=== PATIENT | male | born 1995 | race Caucasian/White ===

== ENCOUNTER 2024-04-17 07:12 | Inpatient (IN) | payer MEDICARE, MEDICAID ==
[2024-04-17] VITALS (60 sets, daily range): BP systolic 86–150; BP diastolic 53–96; PULSE 107–136; RESP 18–45; TEMP 99.1–100.7
[~2024-04-17] VITALS: Ht 172.7 cm; Wt 114.8 kg
[~2024-04-17 07:12] MED LIST: ETOMIDATE 2MG/ML 10ML VIAL IV ONE; LEVE1000 MT; METO25TA6 MT
[2024-04-17] MEDS: ETOMIDATE 2MG/ML 10ML VIAL IV ONE (07:30)
[2024-04-17] MEDS: SUCCINYLCHOLINE CHLORIDE 200MG/10ML IV ONE (07:30)
[2024-04-17] MEDS: PROPOFOL 10MG/ML 100ML 100 ML IV ONE ×2 (07:45→09:50)
[2024-04-17 07:53] LABS: INR 0.9; PROTHROMBIN TIME 10.5 sec (9.6-11.0)
[2024-04-17 07:55] LABS: BASOPHILS % 0.4 % (0.0-2.0); DIFFERENTIAL COMMENT 0; EOSINOPHILS % 0.4 % (0.0-5.0); HEMATOCRIT. 47.9 % (42.0-52.0); LYMPHOCYTES % 8.7 % (20.0-50.0); MEAN CORPUSCULAR HEMOGLOBIN 29.5 pg (28.0-32.0); MEAN CORPUSCULAR HGB CONC 33.3 g/dL (31.0-37.0); MEAN CORPUSCULAR VOLUME 88.4 fL (80.0-94.0); MEAN PLATELET VOLUME 7.7 fl (7.4-10.4); MONOCYTES % 9.8 % (2.0-8.0); NEUTROPHILS % 80.7 % (40.0-76.0); PLATELET 378 x1000/uL (130-400); RED BLOOD CELL COUNT 5.42 mill/uL (4.7-6.1); RED CELL DISTRIBUTION WIDTH 14.4 % (11.6-14.6)
[2024-04-17 08:04] LABS: POTASSIUM 3.3 mEq/L (3.5-5.1)
[2024-04-17 08:06] LABS: CALCIUM 9.5 mg/dL (8.7-10.4)
[2024-04-17] MEDS: SODIUM CHLORIDE 0.9% 1000ML BAG (SEPSIS BOLUS) IV ONE (08:10)
[2024-04-17 08:13] LABS: CREATININE 1.6 mg/dL (0.6-1.3)
[2024-04-17] MEDS: PIPERACILLIN/TAZO 3.375G/50ML 50 ML IV ONE (08:35)
[2024-04-17 08:38] LABS: LACTIC ACID 4.8 mmol/L (0.4-2.0)
[2024-04-17 09:30] LABS: CLARITY URINE CLOUDY (CLEAR); COLOR URINE ORANGE (YELLOW); GLUCOSE URINE NEGATIVE (NEGATIVE); KETONES URINE NEGATIVE (NEGATIVE); LEUKOCYTE ESTERASE URINE TRACE (NEGATIVE); NITRITE URINE NEGATIVE (NEGATIVE); OCCULT BLOOD URINE 3+ (NEGATIVE); PH URINE 5.5 (4.5-8.0); PROTEIN URINE 3+ (NEGATIVE); SPECIFIC GRAVITY URINE 1.016 (1.005-1.030); UROBILINOGEN URINE 0.2 E.U./dL (0.2-1.0)
[2024-04-17 09:42] LABS: BG BASE EXCESS -5.6 mmol/L (-2.0-2.0); BG CARBOXYHEMOGLOBIN 0.3 % (0.5-1.5); BG DEOXYHEMOGLOBIN 1.4 % (0.0-5.0); BG FRACTION INSPIRED OXYGEN 100; BG HCO3 ACT 21.3 mmol/L (22.0-26.0); BG METHEMOGLOBIN 0.1 % (0.0-1.5); BG OXYGEN SATURATION 98.6 % (92.0-98.5); BG OXYHEMOGLOBIN 98.2 % (94.0-97.0); BG PCO2 46.8 mmHg (35.0-45.0); BG PH 7.277 (7.350-7.450); BG PO2 140.8 mmHg (75.0-100.0); BG SAMPLE SITE RIGHT RADIAL; BG TOTAL HEMOGLOBIN 17.1 g/dL (12.0-18.0); BG VENT MODE VENT - AC
[2024-04-17 09:49] LABS: BACTERIA URINE NONE SEEN; COARSE GRANULAR CASTS URINE 0-5 /lpf; HYALINE CASTS URINE 0-5 /lpf; SQUAMOUS EPITHELIAL CELL URINE RARE /lpf (RARE/1+); WBC URINE 0-2 /hpf (0-2); YEAST URINE NONE SEEN
[2024-04-17] MEDS: LEVETIRACETAM 1000MG PREMIX 100 ML IV ONE (09:49)
[2024-04-17] MEDS: VANCOMYCIN 1G PREMIX 200 ML IV ONE (09:49)
[2024-04-17] MEDS: LIDOCAINE HCL 1% 10 MG/ML 10ML VIAL ONE (09:57)
[2024-04-17] MEDS ORDERED: MIDAZOLAM 100MG/100ML PMX 100 ML IV PRN (10:15)
[2024-04-17] MEDS: MIDAZOLAM HCL 100 MG in DEXT 5% WATER 80 ML IV ONE (10:18)
[2024-04-17 11:42] LABS: CREATINE KINASE 10088 IU/L (46-171); ETHANOL BLOOD < 10 mg/dL (<10)
[2024-04-17] MEDS: FENTANYL 2500MCG/250ML PMX 250 ML IV PRN (12:15)
[2024-04-17] MEDS ORDERED: BICT1TAB PO (12:34)
[2024-04-17] MEDS: PROPOFOL 10MG/ML 100ML 100 ML IV PRN (13:41)
[2024-04-17 14:27] LABS: BG BASE EXCESS -3.9 mmol/L (-2.0-2.0); BG CARBOXYHEMOGLOBIN 0.3 % (0.5-1.5); BG DEOXYHEMOGLOBIN 1.8 % (0.0-5.0); BG FRACTION INSPIRED OXYGEN 60; BG HCO3 ACT 20.4 mmol/L (22.0-26.0); BG OXYGEN SATURATION 98.2 % (92.0-98.5); BG OXYHEMOGLOBIN 97.9 % (94.0-97.0); BG PCO2 35.3 mmHg (35.0-45.0); BG PH 7.379 (7.350-7.450); BG PO2 117.9 mmHg (75.0-100.0); BG SAMPLE SITE RIGHT RADIAL; BG TOTAL HEMOGLOBIN 15.8 g/dL (12.0-18.0); BG VENT MODE VENT - AC
[2024-04-17] MEDS ORDERED: ONDANSETRON HCL 4MG/2ML INJ IV PRN (15:15)
[2024-04-17] MEDS ORDERED: VANCOMYCIN 1G PREMIX 200 ML IV SCH (15:15)
[2024-04-17] MEDS ORDERED: IPRATROPIUM/ALBUTEROL 0.5-3(2.5)MG/3ML NEB HHN PRN (15:15)
[2024-04-17] MEDS ORDERED: CLONIDINE 0.1MG TABLET PO PRN (15:15)
[2024-04-17] MEDS ORDERED: MORPHINE SULFATE 2 MG/ML INJ (NOT FOR IM USE) IV PRN (15:15)
[2024-04-17] MEDS ORDERED: PIPERACILLIN/TAZOBACTAM 3.375 G in DEXTROSE 5% WATER 50 ML IV SCH (15:15)
[2024-04-17] MEDS: DEXT 5%/0.45% NACL 1000ML 1,000 ML IV SCH (15:44)
[2024-04-17] MEDS: PIPERACILLIN/TAZO 3.375G/50ML IV SCH (15:58)
[2024-04-17 16:02] LABS: *AMPHETAMINES SCREEN URINE NEGATIVE (NEGATIVE); *BARBITURATES SCREEN URINE NEGATIVE (NEGATIVE); *BENZODIAZEPINES SCREEN URINE PRESUMPTIVE POSITIVE (NEGATIVE); *COCAINE SCREEN URINE NEGATIVE (NEGATIVE); CANNABINOID URINE SCREEN PRESUMPTIVE POSITIVE (NEGATIVE); ECSTASY MDMA SCREEN URINE NEGATIVE (NEGATIVE); METHADONE URINE SCREEN NEGATIVE (NEGATIVE); OPIATES URINE SCREEN NEGATIVE (NEGATIVE); PHENCYCLIDINE URINE SCREEN NEGATIVE (NEGATIVE)
[2024-04-17] MEDS: VANCOMYCIN 2,000 MG in DEXT 5% WATER 500 ML IV NR (16:46)
[2024-04-17] MEDS ORDERED: DEXTROSE 50% WATER 50ML SYRINGE IV PRN (17:15)
[2024-04-17] MEDS: INSULIN LISPRO 100 UNITS/ML SUBCUT SCH (18:00)
[2024-04-17] MEDS: BLOOD SUGAR DIAGNOSTIC STRIP TEST SCH (18:12)
[2024-04-17] MEDS: ENOXAPARIN 30MG/0.3ML SYR SUBCUT SCH (18:13)
[2024-04-17] MEDS: ACETAMINOPHEN 650MG/20.3ML UDC GT PRN (19:31)
[2024-04-17] MEDS: MIDAZOLAM 100MG/100ML PMX 100 ML IV PRN (19:37)
[2024-04-17] MEDS ORDERED: LEVETIRACETAM 500MG in NACL 100ML PREMIX IV SCH (21:00)
[2024-04-17] MEDS ORDERED: LEVETIRACETAM 500MG PREMIX 100 ML IV SCH (21:00)
[2024-04-17] MEDS: LEVETIRACETAM 1000MG PREMIX 100 ML IV SCH (21:11)
[2024-04-17 22:46] LABS: CREATINE KINASE 11085 IU/L (46-171)
[2024-04-17 22:49] LABS: TROPONIN I HIGH SENSITIVITY 80 ng/L (3.0-53)
[2024-04-18] VITALS (85 sets, daily range): BP systolic 80–142; BP diastolic 46–98; PULSE 78–112; RESP 15–43; TEMP 97.7–99.8; O2SAT 95
[2024-04-18] MEDS: IPRATROPIUM/ALBUTEROL 0.5-3(2.5)MG/3ML NEB HHN SCH (02:09)
[2024-04-18 05:47] LABS: HEMATOCRIT. 40.9 % (42.0-52.0); HEMOGLOBIN. 13.7 g/dL (14.0-18.0); MEAN CORPUSCULAR HEMOGLOBIN 29.8 pg (28.0-32.0); MEAN CORPUSCULAR HGB CONC 33.6 g/dL (31.0-37.0); MEAN CORPUSCULAR VOLUME 88.5 fL (80.0-94.0); MEAN PLATELET VOLUME 7.6 fl (7.4-10.4); PLATELET 238 x1000/uL (130-400); RED BLOOD CELL COUNT 4.62 mill/uL (4.7-6.1); WHITE BLOOD COUNT 17.4 x1000/uL (4.5-11.0)
[2024-04-18 05:48] LABS: CARBON DIOXIDE 23 mEq/L (21-32); CHLORIDE 108 mEq/L (98-107); POTASSIUM 3.7 mEq/L (3.5-5.1); SODIUM 141 mEq/L (136-145)
[2024-04-18 05:49] LABS: CALCIUM 8.5 mg/dL (8.7-10.4)
[2024-04-18 05:51] LABS: TROPONIN I HIGH SENSITIVITY 37 ng/L (3.0-53)
[2024-04-18 05:54] LABS: CREATININE 1.2 mg/dL (0.6-1.3); GLUCOSE 113 mg/dL (70-105); TRIGLYCERIDE 272 mg/dL (0-150); UREA NITROGEN BLOOD 10 mg/dL (9-23)
[2024-04-18 05:55] LABS: LDL CHOLESTEROL 20 mg/dL (5-100)
[2024-04-18 05:56] LABS: CHOLESTEROL 88 mg/dL (<200); HDL CHOLESTEROL 35 mg/dL (>55); T4 FREE 1.21 ng/dL (0.89-1.76); THYROID STIMULATING HORMONE 0.99 uIU/mL (0.55-4.78)
[2024-04-18 06:01] LABS: DIFFERENTIAL COMMENT 1
[2024-04-18 06:22] LABS: CREATINE KINASE 10615 IU/L (46-171)
[2024-04-18 09:05] LABS: BG BASE EXCESS -1.2 mmol/L (-2.0-2.0); BG CARBOXYHEMOGLOBIN 0.4 % (0.5-1.5); BG DEOXYHEMOGLOBIN 3.7 % (0.0-5.0); BG FRACTION INSPIRED OXYGEN 50; BG HCO3 ACT 22.9 mmol/L (22.0-26.0); BG METHEMOGLOBIN 0.3 % (0.0-1.5); BG OXYGEN SATURATION 96.3 % (92.0-98.5); BG OXYHEMOGLOBIN 95.6 % (94.0-97.0); BG PCO2 36.6 mmHg (35.0-45.0); BG PH 7.414 (7.350-7.450); BG PO2 83.9 mmHg (75.0-100.0); BG SAMPLE SITE RIGHT RADIAL; BG TOTAL HEMOGLOBIN 13.7 g/dL (12.0-18.0); BG VENT MODE VENT - AC
[2024-04-18] MEDS: VANCOMYCIN 1GM/200ML PMX (BAXTER) IV SCH (11:02)
[2024-04-18] MEDS ORDERED: VANCOMYCIN 1.25GM PMX (XELLIA) 250 ML IV SCH (12:00)
[2024-04-18] MEDS: FUROSEMIDE 40MG/4ML VIAL IVP NR (13:03)
[2024-04-18] MEDS: DEXMEDETOMIDINE 400 MCG/100 ML 100 ML IV PRN (14:00)
[2024-04-18 15:22] LABS: ANISOCYTOSIS 1+; PLATELET ESTIMATE NORMAL
[2024-04-18 16:37] LABS: BG BASE EXCESS -0.3 mmol/L (-2.0-2.0); BG CARBOXYHEMOGLOBIN 0.2 % (0.5-1.5); BG DEOXYHEMOGLOBIN 5.5 % (0.0-5.0); BG FRACTION INSPIRED OXYGEN 50; BG HCO3 ACT 23.8 mmol/L (22.0-26.0); BG METHEMOGLOBIN 0.3 % (0.0-1.5); BG OXYGEN SATURATION 94.5 % (92.0-98.5); BG PCO2 37.4 mmHg (35.0-45.0); BG PH 7.421 (7.350-7.450); BG PO2 70.5 mmHg (75.0-100.0); BG SAMPLE SITE LEFT RADIAL; BG TOTAL HEMOGLOBIN 14.4 g/dL (12.0-18.0); BG VENT MODE VENT - CPAP
[2024-04-19] VITALS (41 sets, daily range): BP systolic 90–150; BP diastolic 35–104; PULSE 77–112; RESP 14–46; TEMP 97.2–99; O2SAT 95–99
[2024-04-19 11:58] LABS: CHLORIDE 107 mEq/L (98-107); POTASSIUM 3.5 mEq/L (3.5-5.1); SODIUM 139 mEq/L (136-145)
[2024-04-19 11:59] LABS: CALCIUM 8.7 mg/dL (8.7-10.4); CARBON DIOXIDE 25 mEq/L (21-32)
[2024-04-19 12:03] LABS: BASOPHILS % 0.6 % (0.0-2.0); EOSINOPHILS % 2.4 % (0.0-5.0); HEMATOCRIT. 37.6 % (42.0-52.0); HEMOGLOBIN. 12.1 g/dL (14.0-18.0); LYMPHOCYTES % 9.1 % (20.0-50.0); MEAN CORPUSCULAR HEMOGLOBIN 28.5 pg (28.0-32.0); MEAN CORPUSCULAR HGB CONC 32.1 g/dL (31.0-37.0); MEAN PLATELET VOLUME 8.3 fl (7.4-10.4); NEUTROPHILS % 81.9 % (40.0-76.0); PLATELET 213 x1000/uL (130-400); RED BLOOD CELL COUNT 4.23 mill/uL (4.7-6.1); RED CELL DISTRIBUTION WIDTH 14.9 % (11.6-14.6); WHITE BLOOD COUNT 11.6 x1000/uL (4.5-11.0)
[2024-04-19 12:04] LABS: GLUCOSE 94 mg/dL (70-105); UREA NITROGEN BLOOD 9 mg/dL (9-23)
[2024-04-19 12:06] LABS: ALANINE AMINOTRANSFERASE 254 IU/L (10-49); ALBUMIN 3.8 g/dL (3.2-4.8); ASPARTATE AMINOTRANSFERASE 231 IU/L (<34); BILIRUBIN DIRECT 0.2 mg/dL (<=3.0); BILIRUBIN TOTAL 0.6 mg/dL (0.1-1.0); PROTEIN TOTAL 6.2 g/dL (6.0-8.3)
[2024-04-19] MEDS: VANCOMYCIN 1GM/200ML PMX (BAXTER) IV SCH (18:22)
[2024-04-19] MEDS ORDERED: NALOXONE HCL 0.4MG/ML VIAL IV PRN (18:45)
[2024-04-19] MEDS ORDERED: ACETYLCYSTEINE 200MG/ML 20% VIAL 4ML PO SCH (21:00)
[2024-04-19] MEDS: ACETYLCYSTEINE 200MG/ML 20% VIAL 4ML INH SCH (22:00)
[2024-04-19] MEDS: TEMAZEPAM 15MG CAPSULE PO PRN (22:05)
[2024-04-20] VITALS (10 sets, daily range): BP systolic 125–133; BP diastolic 75–90; PULSE 85–123; RESP 16–20; TEMP 97.3–99.4; O2SAT 8–98
[2024-04-20 06:50] LABS: CALCIUM 9.4 mg/dL (8.7-10.4); CARBON DIOXIDE 26 mEq/L (21-32); CHLORIDE 103 mEq/L (98-107); SODIUM 138 mEq/L (136-145)
[2024-04-20 06:55] LABS: CREATININE 0.9 mg/dL (0.6-1.3)
[2024-04-20 06:56] LABS: BASOPHILS % 0.4 % (0.0-2.0); EOSINOPHILS % 2.7 % (0.0-5.0); GLUCOSE 92 mg/dL (70-105); HEMATOCRIT. 40.5 % (42.0-52.0); HEMOGLOBIN. 13.6 g/dL (14.0-18.0); LYMPHOCYTES % 12.4 % (20.0-50.0); MEAN CORPUSCULAR HEMOGLOBIN 29.5 pg (28.0-32.0); MEAN CORPUSCULAR HGB CONC 33.6 g/dL (31.0-37.0); MEAN CORPUSCULAR VOLUME 87.7 fL (80.0-94.0); MEAN PLATELET VOLUME 7.5 fl (7.4-10.4); NEUTROPHILS % 75.5 % (40.0-76.0); PLATELET 260 x1000/uL (130-400); RED BLOOD CELL COUNT 4.62 mill/uL (4.7-6.1); RED CELL DISTRIBUTION WIDTH 14.9 % (11.6-14.6); UREA NITROGEN BLOOD 8 mg/dL (9-23); WHITE BLOOD COUNT 9.5 x1000/uL (4.5-11.0)
[2024-04-20 07:08] LABS: CREATINE KINASE 5067 IU/L (46-171)
[2024-04-20] MEDS: POTASSIUM CHLORIDE 20MEQ TABLET SR PO NR (09:32)
[2024-04-20 09:51] LABS: BG BASE EXCESS 0.2 mmol/L (-2.0-2.0); BG CARBOXYHEMOGLOBIN 1.4 % (0.5-1.5); BG DEOXYHEMOGLOBIN 6.5 % (0.0-5.0); BG FRACTION INSPIRED OXYGEN 40; BG HCO3 ACT 23.1 mmol/L (22.0-26.0); BG METHEMOGLOBIN 0.3 % (0.0-1.5); BG OXYGEN SATURATION 93.4 % (92.0-98.5); BG OXYHEMOGLOBIN 91.8 % (94.0-97.0); BG PCO2 32.5 mmHg (35.0-45.0); BG PH 7.469 (7.350-7.450); BG PO2 62.8 mmHg (75.0-100.0); BG SAMPLE SITE RIGHT BRACHIAL; BG TOTAL HEMOGLOBIN 14.1 g/dL (12.0-18.0); BG VENT MODE HIGH FLOW
[2024-04-20 17:07] LABS: *HIV-1 RNA BY PCR <20 copies/mL (.)
[2024-04-21] VITALS (8 sets, daily range): BP systolic 122–139; BP diastolic 74–91; PULSE 78–97; RESP 18–20; TEMP 97.1–98.2; O2SAT 95–97
[2024-04-21 09:09] LABS: % CD 3 POS. LYMPHOCYTES 60.8 % (57.5-86.2); % CD 4 POS. LYMPHOCYTES 32.2 % (30.8-58.5); % CD 8 POS. LYMPH 28.4 % (12.0-35.5); ABSOLUTE BASOPHILS 0.1 x10E3/uL (0.0-0.2); ABSOLUTE CD 3 730 /uL (622-2402); ABSOLUTE CD 4 HELPER 386 /uL (359-1519); ABSOLUTE CD 8 SUPPRESSOR 341 /uL (109-897); ABSOLUTE EOSINOPHILS 0.3 x10E3/uL (0.0-0.4); ABSOLUTE LYMPHOCYTES 1.2 x10E3/uL (0.7-3.1); ABSOLUTE MONOCYTES 0.7 x10E3/uL (0.1-0.9); ABSOLUTE NEUTROPHILS 6.9 x10E3/uL (1.4-7.0); BASOPHILS 1 % (Not Estab.); CD4/CD8 RATIO 1.13 (0.92-3.72); EOSINOPHILS 3 % (Not Estab.); HEMATOCRIT 43.7 % (37.5-51.0); HEMOGLOBIN 14.2 g/dL (13.0-17.7); IMMATURE GRANULOCYTES 1 % (Not Estab.); IMMATURE GRANULOCYTES ABSOLUTE 0.1 x10E3/uL (0.0-0.1); LYMPHOCYTES 13 % (Not Estab.); MEAN CORPUSCULAR HEMOGLOBIN 29.5 pg (26.6-33.0); MEAN CORPUSCULAR HGB CONC. 32.5 g/dL (31.5-35.7); MEAN CORPUSCULAR VOLUME 91 fL (79-97); MONOCYTES 8 % (Not Estab.); NEUTROPHILS 74 % (Not Estab.); PLATELETS 250 x10E3/uL (150-450); RBC 4.81 x10E6/uL (4.14-5.80); RED CELL DISTRIBUTION WIDTH 14.5 % (11.6-15.4); WBC 9.2 x10E3/uL (3.4-10.8)
[2024-04-21 14:21] LABS: BG BASE EXCESS -0.3 mmol/L (-2.0-2.0); BG CARBOXYHEMOGLOBIN 0.9 % (0.5-1.5); BG DEOXYHEMOGLOBIN 7.9 % (0.0-5.0); BG FRACTION INSPIRED OXYGEN 21; BG METHEMOGLOBIN 0.3 % (0.0-1.5); BG OXYHEMOGLOBIN 90.9 % (94.0-97.0); BG PCO2 34.1 mmHg (35.0-45.0); BG PH 7.447 (7.350-7.450); BG PO2 60.3 mmHg (75.0-100.0); BG SAMPLE SITE LEFT RADIAL; BG TOTAL HEMOGLOBIN 14.9 g/dL (12.0-18.0); BG VENT MODE ROOM AIR
[2024-04-21] MEDS ORDERED: VANCOMYCIN 1.25GM PMX (XELLIA) 250 ML IV SCH (17:00)
== END 2024-04-21 17:44 | disposition home or self-care (01) | DRG 208 ==
LOC: ER 07:12 → CVICU 09:09 → EDBEDREQ 09:11 → EDBEDREQTM 09:11 → 7WST 04-19 19:05
PROVIDERS: ADMIT Internal Medicine; ATTEND Internal Medicine
PROC: 5A1945Z Respiratory Ventilation, 24-96 Consecutive Hours (ICD-10-PCS; principal; 2024-04-17)
PROC: 0BH17EZ Insertion of Endotracheal Airway into Trachea, Via Natural or Artificial Opening (ICD-10-PCS; 2024-04-17)
PROC: 02HV33Z Insertion of Infusion Device into Superior Vena Cava, Percutaneous Approach (ICD-10-PCS; 2024-04-17)
PROC: B548ZZA Ultrasonography of Superior Vena Cava, Guidance (ICD-10-PCS; 2024-04-17)
PROC: 5A0945A Assistance with Respiratory Ventilation, 24-96 Consecutive Hours, High Flow/Velocity Cannula (ICD-10-PCS; 2024-04-18)
PROC: 4A00X4Z Measurement of Central Nervous Electrical Activity, External Approach (ICD-10-PCS; 2024-04-18)
DX: J80 Acute respiratory distress syndrome (principal); J69.0 Pneumonitis due to inhalation of food and vomit; J93.9 Pneumothorax, unspecified; M62.82 Rhabdomyolysis; N17.9 Acute kidney failure, unspecified; G40.901 Epilepsy, unspecified, not intractable, with status epilepticus; F15.90 Other stimulant use, unspecified, uncomplicated; F12.90 Cannabis use, unspecified, uncomplicated; G93.89 Other specified disorders of brain; Z51.5 Encounter for palliative care; Z86.73 Personal history of transient ischemic attack (TIA), and cerebral infarction without residual deficits
CPT/HCPCS: 31500; 36415; 36573; 36600; 71045; 80048; 80061; 80076; 80202; 80305; 80320; 81003; 82375; 82550; 82805; 82962; 83605; 84145; 84425; 84439; 84443; 84484; 85025; 86359; 86360; 86850; 86900; 87070; 87077; 87186; 87536; 92610; 93005; 94003; 94640; 95816; 99291; C1725; J0330; J1650; J1940; J1953; J2250; J2543; J2704; J3010; J3370; J3490; J7030; J7060; J7608; Q9957; G0480

== ENCOUNTER 2024-08-25 04:15 | Inpatient (IN) | payer OTHER, MEDICAID, MEDICARE ==
[~2024-08-25] VITALS: Ht 177.8 cm; Wt 124.8 kg
[2024-08-25] VITALS (9 sets, daily range): BP systolic 115–156; BP diastolic 76–105; PULSE 89–112; RESP 17–32; TEMP 36.6696–37.11408; O2SAT 93–98
[~2024-08-25 04:15] MED LIST changes: +BICT1TAB PO; -ETOMIDATE 2MG/ML 10ML VIAL IV ONE; +KEPP500 MT
[2024-08-25] MEDS: LEVETIRACETAM 1000MG PREMIX 100 ML IV ONE (04:47)
[2024-08-25 05:03] LABS: BASOPHILS % 0.6 % (0.0-2.0); EOSINOPHILS % 2.5 % (0.0-5.0); HEMATOCRIT. 48.1 % (42.0-52.0); HEMOGLOBIN. 16.7 g/dL (14.0-18.0); LYMPHOCYTES % 34.3 % (20.0-50.0); MEAN CORPUSCULAR HEMOGLOBIN 30.2 pg (28.0-32.0); MEAN CORPUSCULAR HGB CONC 34.7 g/dL (31.0-37.0); MEAN CORPUSCULAR VOLUME 86.8 fL (80.0-94.0); MEAN PLATELET VOLUME 7.1 fl (7.4-10.4); MONOCYTES % 7.7 % (2.0-8.0); NEUTROPHILS % 54.9 % (40.0-76.0); PLATELET 276 x1000/uL (130-400); RED BLOOD CELL COUNT 5.54 mill/uL (4.7-6.1); RED CELL DISTRIBUTION WIDTH 13.8 % (11.6-14.6); WHITE BLOOD COUNT 10.2 x1000/uL (4.5-11.0)
[2024-08-25 05:08] LABS: CHLORIDE 105 mEq/L (98-107); POTASSIUM 4.2 mEq/L (3.5-5.1); SODIUM 140 mEq/L (136-145)
[2024-08-25 05:09] LABS: CALCIUM 9.5 mg/dL (8.7-10.4); CARBON DIOXIDE 27 mEq/L (21-32)
[2024-08-25 05:14] LABS: CREATININE 0.8 mg/dL (0.6-1.3); GLUCOSE 114 mg/dL (70-105); UREA NITROGEN BLOOD 11 mg/dL (9-23)
[2024-08-25 05:16] LABS: LACTIC ACID 2.1 mmol/L (0.4-2.0)
[2024-08-25] MEDS: ONDANSETRON HCL 4MG/2ML INJ IV PRN (07:09)
[2024-08-25] MEDS: LORAZEPAM 2MG/ML INJ IV ONE (07:09)
[2024-08-25] MEDS ORDERED: ONDANSETRON HCL 4MG/2ML INJ IV PRN (12:15)
[2024-08-25] MEDS ORDERED: ACETAMINOPHEN 325MG TABLET PO PRN (12:15)
[2024-08-25] MEDS ORDERED: IPRATROPIUM/ALBUTEROL 0.5-3(2.5)MG/3ML NEB HHN PRN (12:15)
[2024-08-25] MEDS: HYDROCODONE/ACETAMINOPHEN 5/325MG TABLET PO PRN (12:27)
[2024-08-25] MEDS: ENOXAPARIN 30MG/0.3ML SYR SUBCUT SCH (14:54)
[2024-08-25 17:22] LABS: *AMPHETAMINES SCREEN URINE NEGATIVE (NEGATIVE); *BARBITURATES SCREEN URINE NEGATIVE (NEGATIVE); *BENZODIAZEPINES SCREEN URINE PRESUMPTIVE POSITIVE (NEGATIVE); *COCAINE SCREEN URINE NEGATIVE (NEGATIVE); CANNABINOID URINE SCREEN PRESUMPTIVE POSITIVE (NEGATIVE); ECSTASY MDMA SCREEN URINE NEGATIVE (NEGATIVE); METHADONE URINE SCREEN NEGATIVE (NEGATIVE); OPIATES URINE SCREEN PRESUMPTIVE POSITIVE (NEGATIVE); PHENCYCLIDINE URINE SCREEN NEGATIVE (NEGATIVE)
[2024-08-25] MEDS: LEVETIRACETAM 500MG TABLET PO SCH (21:03)
[2024-08-25] MEDS: METOPROLOL TARTRATE 25MG TABLET PO SCH (21:03)
[2024-08-26] VITALS (12 sets, daily range): BP systolic 110–145; BP diastolic 38–95; PULSE 76–94; RESP 12–29; TEMP 36.3918–37.11408; O2SAT 90–98
[2024-08-26 07:05] LABS: BASOPHILS % 0.2 % (0.0-2.0); EOSINOPHILS % 0.2 % (0.0-5.0); HEMATOCRIT. 45.9 % (42.0-52.0); HEMOGLOBIN. 15.7 g/dL (14.0-18.0); LYMPHOCYTES % 18.1 % (20.0-50.0); MEAN CORPUSCULAR HEMOGLOBIN 29.3 pg (28.0-32.0); MEAN CORPUSCULAR HGB CONC 34.3 g/dL (31.0-37.0); MEAN CORPUSCULAR VOLUME 85.6 fL (80.0-94.0); MEAN PLATELET VOLUME 7.3 fl (7.4-10.4); MONOCYTES % 7.9 % (2.0-8.0); NEUTROPHILS % 73.6 % (40.0-76.0); PLATELET 301 x1000/uL (130-400); RED BLOOD CELL COUNT 5.37 mill/uL (4.7-6.1); RED CELL DISTRIBUTION WIDTH 13.5 % (11.6-14.6); WHITE BLOOD COUNT 12.3 x1000/uL (4.5-11.0)
[2024-08-26 07:12] LABS: CARBON DIOXIDE 25 mEq/L (21-32); CHLORIDE 102 mEq/L (98-107); POTASSIUM 3.6 mEq/L (3.5-5.1); SODIUM 139 mEq/L (136-145)
[2024-08-26 07:13] LABS: CALCIUM 9.7 mg/dL (8.7-10.4)
[2024-08-26 07:17] LABS: CREATININE 0.8 mg/dL (0.6-1.3)
[2024-08-26 07:18] LABS: GLUCOSE 90 mg/dL (70-105); UREA NITROGEN BLOOD 11 mg/dL (9-23)
[2024-08-26] MEDS: ACETAMINOPHEN 325MG TABLET PO PRN (13:04)
[2024-08-26] MEDS ORDERED: ATOR40TA70 MT (15:46)
[2024-08-26] MEDS ORDERED: ASPI-1497 MT (15:46)
[2024-08-26] MEDS ORDERED: LEVE10006 PO (18:25)
== END 2024-08-26 21:30 | disposition home or self-care (01) | DRG 101 ==
LOC: ER 04:15 → 5EST 05:01
PROVIDERS: ADMIT Internal Medicine; ATTEND Internal Medicine
DX: G40.909 Epilepsy, unspecified, not intractable, without status epilepticus (principal); Z91.148 Patient's other noncompliance with medication regimen for other reason; Z86.73 Personal history of transient ischemic attack (TIA), and cerebral infarction without residual deficits; Z79.899 Other long term (current) drug therapy; Z21 Asymptomatic human immunodeficiency virus [HIV] infection status
CPT/HCPCS: 36415; 70551; 71045; 80048; 80305; 80320; 82542; 82962; 83605; 85025; 93005; 99291; J1650; J1953; J2060; J2405; G0480

== ENCOUNTER 2024-10-24 09:03 | Inpatient (IN) | payer MEDICARE, MEDICAID ==
[~2024-10-24] VITALS: Ht 170.2 cm; Wt 120.7 kg
[~2024-10-24 09:03] MED LIST changes: +ASPI-1497 MT; +ATOR40TA70 MT; -KEPP500 MT; -LEVE1000 MT; +LEVE10006 PO
[2024-10-24] MEDS ORDERED: LORAZEPAM 2MG/ML INJ ONE (09:34)
[2024-10-24] MEDS: LORAZEPAM 2MG/ML INJ IV ONE ×2 (09:44)
[2024-10-24] MEDS: LEVETIRACETAM 500MG PREMIX 100 ML IV ONE (10:14)
[2024-10-24] MEDS: MIDAZOLAM HCL 2 MG/2 ML VIAL IV ONE (10:29)
[2024-10-24] MEDS ORDERED: ONDANSETRON HCL 4MG/2ML INJ ONE (10:32)
[2024-10-24] MEDS: ONDANSETRON HCL 4MG/2ML INJ IV ONE (10:39)
[2024-10-24 10:40] LABS: CHLORIDE 105 mEq/L (98-107); POTASSIUM 4.1 mEq/L (3.5-5.1); SODIUM 140 mEq/L (136-145)
[2024-10-24 10:41] LABS: CALCIUM 9.8 mg/dL (8.7-10.4); CARBON DIOXIDE 27 mEq/L (21-32)
[2024-10-24 10:46] LABS: GLUCOSE 132 mg/dL (70-105); UREA NITROGEN BLOOD 10 mg/dL (9-23)
[2024-10-24 10:48] LABS: ALANINE AMINOTRANSFERASE 80 IU/L (10-49); ALBUMIN 5.1 g/dL (3.2-4.8); ASPARTATE AMINOTRANSFERASE 41 IU/L (<34); BILIRUBIN TOTAL 0.3 mg/dL (0.1-1.0)
[2024-10-24 10:49] LABS: BASOPHILS % 0.3 % (0.0-2.0); EOSINOPHILS % 0.3 % (0.0-5.0); HEMATOCRIT. 49.8 % (42.0-52.0); HEMOGLOBIN. 16.2 g/dL (14.0-18.0); LYMPHOCYTES % 11.3 % (20.0-50.0); MEAN CORPUSCULAR HEMOGLOBIN 29.3 pg (28.0-32.0); MEAN CORPUSCULAR HGB CONC 32.5 g/dL (31.0-37.0); MEAN CORPUSCULAR VOLUME 90.2 fL (80.0-94.0); MEAN PLATELET VOLUME 7.5 fl (7.4-10.4); MONOCYTES % 3.2 % (2.0-8.0); NEUTROPHILS % 84.9 % (40.0-76.0); PLATELET 285 x1000/uL (130-400); RED BLOOD CELL COUNT 5.52 mill/uL (4.7-6.1); RED CELL DISTRIBUTION WIDTH 13.7 % (11.6-14.6); WHITE BLOOD COUNT 11.5 x1000/uL (4.5-11.0)
[2024-10-24] MEDS ORDERED: HALOPERIDOL LACTATE 5MG/ML VIAL IM ONE (11:13)
[2024-10-24] MEDS: HALOPERIDOL LACTATE 5MG/ML VIAL IM ONE (11:26)
[2024-10-24] MEDS ORDERED: ATORVASTATIN CALCIUM 40MG TABLET PO SCH (16:30)
[2024-10-24] MEDS: ASPIRIN 81MG EC TABLET PO SCH (16:30)
[2024-10-24] MEDS: METOPROLOL TARTRATE 25MG TABLET PO SCH (16:30)
[2024-10-24 20:00] VITALS: BP 130/72; PULSE 95; RESP 18; RESP 20; TEMP 36.8; O2SAT 95
[2024-10-24] MEDS: ATORVASTATIN CALCIUM 40MG TABLET PO SCH (21:10)
[2024-10-25] VITALS: BP 103/59; PULSE 86; RESP 18; TEMP 37; O2SAT 100
[2024-10-25 04:00] VITALS: BP 129/90; PULSE 84; RESP 18; TEMP 36.7; O2SAT 100
[2024-10-25 08:00] VITALS: BP 148/86; PULSE 86; RESP 18; TEMP 36.6; O2SAT 95
[2024-10-25] MEDS: LEVETIRACETAM 500MG TABLET PO SCH (10:17)
[2024-10-25 12:00] VITALS: BP 100/61; PULSE 60; RESP 18; TEMP 36.6; O2SAT 95
[2024-10-25 16:00] VITALS: BP 116/76; PULSE 68; RESP 20; TEMP 37.1; O2SAT 97
[2024-10-25 20:00] VITALS: BP 119/40; PULSE 75; RESP 19; TEMP 36.4; O2SAT 98
[2024-10-26] VITALS: BP 116/73; PULSE 60; RESP 19; TEMP 36.8; O2SAT 98
[2024-10-26 04:00] VITALS: BP 115/74; PULSE 74; RESP 19; TEMP 36.6; O2SAT 97
[2024-10-26 08:13] VITALS: BP 116/67; PULSE 66; RESP 18; TEMP 36.7; O2SAT 99
[2024-10-26] MEDS: LACOSAMIDE 100MG TABLET PO SCH (10:07)
[2024-10-26 12:00] VITALS: BP 108/60; PULSE 87; RESP 19; TEMP 36.8; O2SAT 100
[2024-10-26 16:26] VITALS: BP 105/59; PULSE 76; RESP 18; TEMP 36.8; O2SAT 97
[2024-10-26 20:20] VITALS: BP 118/82; PULSE 81; RESP 18; TEMP 36.4; O2SAT 96
[2024-10-27 00:26] VITALS: BP 117/76; PULSE 68; RESP 18; TEMP 36.4; O2SAT 98
[2024-10-27 04:00] VITALS: BP 118/74; PULSE 65; RESP 18; TEMP 36.3; O2SAT 97
[2024-10-27 08:12] VITALS: BP 124/73; PULSE 74; RESP 20; TEMP 36.8; O2SAT 94
[2024-10-27 11:21] VITALS: BP 124/52; PULSE 65; RESP 19; TEMP 36.4; O2SAT 98
[2024-10-27] MEDS ORDERED: KEPP500 PO (13:40)
[2024-10-27] MEDS ORDERED: LACO100T2 PO (13:40)
[2024-10-27 14:45] VITALS: BP 124/52; PULSE 65; TEMP 98; O2SAT 98
== END 2024-10-27 16:01 | disposition home or self-care (01) | DRG 101 ==
LOC: ER 10:13 → 7WST 13:15 → EDBEDREQ 13:17 → EDBEDREQTM 13:17 → ER 16:15
PROVIDERS: ADMIT Internal Medicine; ATTEND Internal Medicine
DX: G40.909 Epilepsy, unspecified, not intractable, without status epilepticus (principal); I50.22 Chronic systolic (congestive) heart failure; Z79.899 Other long term (current) drug therapy; Z91.199 Patient's noncompliance with other medical treatment and regimen due to unspecified reason
CPT/HCPCS: 36415; 71045; 80053; 80339; 85025; 93005; 99285; A4606; J1630; J1953; J2060; J2250; J2405